=== PATIENT | male | born 1950 ===

== ENCOUNTER 2019-05-14 08:41 | Day surgery (SDC) | payer OTHER ==
[~2019-05-14 08:41] MED LIST: CLOPIDOGREL BIS75 MG PO; COZAAR100 MG PO; HYDRA PO; JANUVIA PO; METOPRO PO; ZOCOR20 MG PO
== END 2019-05-14 19:25 | disposition home or self-care (01) ==
LOC: CIR.AMB 08:41
DX: K60.1 Chronic anal fissure (principal); K62.4 Stenosis of anus and rectum; K64.8 Other hemorrhoids